=== PATIENT | female | born 1980 | race Caucasian/White ===

== ENCOUNTER 2018-04-15 01:25 | Emergency (ER) | payer BC ==
[2018-04-15] MEDS ORDERED: ACETAMINOPHEN 325 MG TABLET PO ONE (02:03)
[2018-04-15 02:07] LABS: APPEARANCE,URINE SLIGHTLY-CLOUDY; BILIRUBIN,URINE NEGATIVE (NEGATIVE); COLOR,URINE YELLOW; GLUCOSE, URINE NEGATIVE (NEGATIVE); KETONES,URINE NEGATIVE (NEGATIVE); LEUKOCYTE ESTERASE,URINE NEGATIVE (NEGATIVE); NITRITE,URINE NEGATIVE (NEGATIVE); PROTEIN,URINE 100 mg/dL (NEGATIVE); UROBILINOGEN,URINE NEGATIVE mg/dL (<2.0)
--- NOTE | 2018-04-15 02:07 | ER Document Report ---
ED General - General Chief Complaint: Vaginal Bleeding Stated Complaint: VAGINAL BLEEDING Time Seen by Provider: 04/15/18 01:48 TRAVEL OUTSIDE OF THE U.S[place] IN LAST 30 DAYS: No - HPI Notes: Patient is a 37-year-old female approximately 11 weeks who presents to the ED complaining of lower abdominal cramping and vaginal bleeding 1-1/2 hours. Patient states that she did have a miscarriage when she was 6 weeks with her first . She has not had any other abortions or miscarriages nor any other pregnancies prior. Patient states that she has been eating and drinking without difficulties. She is urinating normally and having normal bowel movements. She has not noticed any other discharge or odor vaginally. The cramping does not radiate. Patient states that she has had some nausea without any vomiting. She has a history of ovarian cysts. No other significant past medical history. Patient states that she was seen in [facility] and had an ultrasound and heart tones performed which were 180 bpm. Denies any headache, fevers, neck pain, URI, sore throat, chest pain, palpitations, syncope, cough, shortness of breath, wheeze, dyspnea, vomiting/ diarrhea, urinary retention, dysuria, hematuria, back pain, loss of control of bowel or bladder, numbness/tingling, saddle anesthesia, muscle paralysis/ weakness, or rash. - Related Data Allergies/Adverse Reactions: No Known Allergies Allergy (Unverified 04/15/18 01:58) Past Medical History - Social History Smoking Status: Former Smoker Family History: Reviewed & Not Pertinent Patient has suicidal ideation: No Patient has homicidal ideation: No Renal/ Medical History: Denies: Hx Peritoneal Dialysis Past Surgical History: Reports: Hx Gynecologic Surgery - uterine septum, Hx Tonsillectomy Review of Systems - Review of Systems -: Yes All other systems reviewed and negative Physical Exam - Vital signs Vitals: Temp Pulse Resp BP Pulse Ox 100.9 F H 108 H 18 142/94 H 98 04/15/18 01:32 04/15/18 01:32 04/15/18 01:32 04/15/18 01:32 04/15/18 01:32 - Notes Notes: PHYSICAL EXAMINATION: GENERAL: Well-appearing, well-nourished and in no acute distress. A&ox4. Answers questions appropriately. LUNGS: Breath sounds clear to auscultation bilaterally and equal. No wheezes rales or rhonchi. HEART: Regular rate and rhythm without murmurs, rubs, gallops. ABDOMEN: Soft, nondistended abdomen. No guarding, no rebound. No masses appreciated. Normal bowel sounds present. No CVA tenderness bilaterally. + mild tenderness lower pubic area b/l. No tenderness at mcburney and neg watkins. Extremities: No cyanosis, clubbing, or edema b/l. Peripheral pulses 2+. Capillary refill less than 3 seconds. NEUROLOGICAL: Normal speech, normal gait. PSYCH: Normal mood, normal affect. SKIN: Warm, Dry, normal turgor, no rashes or lesions noted. Course - Re-evaluation Re-evalutation: 04/15/18 03:41 Patient is a well-hydrated 37-year-old female who presents to the ED with vaginal bleeding in early , ovarian cyst, and her abdominal cramping/ pain. Vitals are acceptable. PE is otherwise unremarkable. Patient has no significant tachycardia, tachypnea, or hypoxia. She was given Tylenol and Zofran. Patient states that she did receive RhoGam on Tuesday she is a negative. CBC, CMP, urinalysis were otherwise unremarkable for any acute pathology. HCG appropriate for an 11 week 2 day gestation approximately by ultrasound. Ultrasound also showed a subchorionic bleed, ovarian cyst, and tachycardia at 180 bpm. Patient states that she is already scheduled for an appointment with [facility]. Advised patient that she is at risk of an / miscarriage which she is understanding of. Advised close follow-up with [facility] early next week. Return to the ED with any worsening/concerning symptoms otherwise as reviewed in discharge. Low suspicion otherwise for any other acute abdomen at this time. Patient is in agreement. - Vital Signs Vital signs: Temp Pulse Resp BP Pulse Ox 100.9 F H 108 H 18 142/94 H 98 04/15/18 01:32 04/15/18 01:32 04/15/18 01:32 04/15/18 01:32 04/15/18 01:32 - Laboratory Result Diagrams: 04/15/18 02:15 04/15/18 02:15 Laboratory results interpreted by me: 04/15/18 04/15/18 04/15/18 01:46 02:15 02:15 RDW 14.1 H Alkaline Phosphatase 37 L Beta HCG, Quant 41720.00 H Urine Protein 100 H Urine Blood LARGE H Discharge - Discharge Clinical Impression: Vaginal bleeding affecting early Ovarian cyst Qualifiers: Laterality: left Qualified Code(s): N83.202 - Unspecified ovarian cyst, left side Condition: Stable Disposition: HOME, SELF-CARE Instructions: Ovarian Cyst ([facility]), Bleeding During Early ([facility]) Additional Instructions: Maintain fluid intake Proper hygenic technique Keep the skin clean Tylenol as needed Take medications as directed F/u with your PCM/OBGYN in 2-3 days for a recheck Consider consult with a Urologist for ongoing/worsening symptoms. Return to the ED with any worsening symptoms and/or development of fever, headache, chest pain, palpitations, syncope, shortness of breath, trouble breathing, abdominal pain, n/v/d, blood in stool/urine, loss of control of bowel /bladder, urinary retention, or other worsening symptoms that are concerning to you. Prescriptions: Ondansetron [Zofran Odt 4 mg Tablet] 1 - 2 tab PO Q4H PRN #15 tab.rapdis PRN Reason: For Nausea/Vomiting Forms: Elevated Blood Pressure Referrals: STACY SWEENEY PA [Primary Care Provider] - 04/17/18 [facility] [Provider Group] - 04/17/18
[2018-04-15 02:26] LABS: ABSOLUTE BASOPHILS # (AUTO) 0.1 10^3/uL (0.0-0.2); ABSOLUTE EOSINOPHILS # (AUTO) 0.2 10^3/uL (0.0-0.6); ABSOLUTE LYMPHOCYTES (AUTO) 1.3 10^3/uL (0.5-4.7); ABSOLUTE NEUT (AUTO) 7.7 10^3/uL (1.7-8.2); BASOPHILS % (AUTO) 0.7 % (0-2); EOSINOPHILS % (AUTO) 1.8 % (0-6); HEMATOCRIT 37.9 % (36.0-47.0); HEMOGLOBIN 12.9 g/dL (12.0-15.5); LYMPHOCYTES % (AUTO) 13.1 % (13-45); MEAN CORPUSCULAR HEMOGLOBIN 28.5 pg (27.0-33.4); MEAN CORPUSCULAR HGB CONC 34.1 g/dL (32.0-36.0); MEAN CORPUSCULAR VOLUME 84 fl (80-97); MONOCYTES % (AUTO) 9.3 % (3-13); PLATELET COUNT 216 10^3/uL (150-450); RED BLOOD COUNT 4.53 10^6/uL (3.72-5.28); RED CELL DISTRIBUTION WIDTH 14.1 % (11.5-14.0); SEGMENTED NEUTROPHILS % (AUTO) 75.1 % (42-78); TOTAL CELLS COUNTED % (AUTO) 100 %; WHITE BLOOD COUNT 10.3 10^3/uL (4.0-10.5)
[2018-04-15 02:47] LABS: ALANINE AMINOTRANSFERASE 22 U/L (9-52); ALBUMIN 4.1 g/dL (3.5-5.0); ALKALINE PHOSPHATASE 37 U/L (38-126); ANION GAP 12 (5-19); ASPARTATE AMINO TRANSFERASE 15 U/L (14-36); BILIRUBIN,DIRECT 0.3 mg/dL (0.0-0.4); BILIRUBIN,TOTAL 0.3 mg/dL (0.2-1.3); BLOOD UREA NITROGEN 13 mg/dL (7-20); CALCIUM 9.9 mg/dL (8.4-10.2); CARBON DIOXIDE 22 mmol/L (22-30); CHLORIDE 105 mmol/L (98-107); GLUCOSE 106 mg/dL (75-110); POTASSIUM 4.6 mmol/L (3.6-5.0); SODIUM 139.2 mmol/L (137-145); TOTAL PROTEIN 6.9 g/dL (6.3-8.2)
[2018-04-15] MEDS ORDERED: ONDANSETRON 4 MG TAB.RAPDIS PO ONE (03:11)
--- NOTE | 2018-04-15 03:35 | RADIOLOGY REPORT (SQ) ---
EXAM DESCRIPTION: US TRANSVAGINAL COMPLETED DATE/TME: 04/15/2018 01:48 CLINICAL HISTORY: 37 years, Female, and bleeding LMP 01/28/2018 COMPARISON: None. TECHNIQUE: Complete first trimester surgical ultrasound with transvaginal imaging. FINDINGS: The uterus measures 11.5 x 9.3 x 7.2 cm. Within the endometrial canal there is a single gestational sac with pole identified. [place]-rump length of 4.48 cm compatible with an estimated gestational age of 11 weeks, 2 days. heart rate of 180 beats for minute. Gestational sac has a qualitatively normal appearance. No myometrial abnormalities. Small hypodensity adjacent to the gestational sac. The right ovary is not identified. The left ovary measures 7.6 x 6.2 x 4.1 cm by my measurements. Within the left ovary there is a 7.2 x 4.2 x 4.2 cm cyst. No free pelvic fluid. IMPRESSION: 1. Single live intrauterine with estimated gestational age of 11 weeks, 2 days. 2. Small subchorionic hemorrhage is a 1.4 cm. 3. tachycardia at 180 beats for minute. Close continued clinical and sonographic follow-up recommended. 4. There is a 7.2 cm simple left ovarian cyst. Obstetrical evaluation recommended. 2010 [employer]- All Rights Reserved
[2018-04-15] MEDS ORDERED: ONDANSETRON ODT 4 MG TAB (6 TAB/ER DISP) PO PRN (03:48)
[2018-04-15 03:59] VITALS: BP 137/83
== END 2018-04-15 04:19 | disposition home or self-care (01) ==
LOC: ER 01:25
DX: O20.8 Other hemorrhage in early pregnancy (principal); O34.80 Maternal care for other abnormalities of pelvic organs, unspecified trimester; N83.292 Other ovarian cyst, left side; O26.899 Other specified pregnancy related conditions, unspecified trimester; R11.0 Nausea; O36.8390 Maternal care for abnormalities of the fetal heart rate or rhythm, unspecified trimester, not applicable or unspecified; Z3A.00 Weeks of gestation of pregnancy not specified; Z87.891 Personal history of nicotine dependence; Z87.59 Personal history of other complications of pregnancy, childbirth and the puerperium
CPT/HCPCS: 99284; 86900; 86901; 36415; 87086; 84702; 85025; 80053; 81001; 76817; 93976; S0119

== ENCOUNTER 2018-07-06 07:55 | Emergency (ER) | payer BC ==
[2018-07-06] MEDS ORDERED: NORMAL SALINE 1000 ML 1,000 ML IV ONE ×2 (08:51→12:36)
--- NOTE | 2018-07-06 08:58 | ER Document Report ---
ED General - General Chief Complaint: Abdominal Pain Stated Complaint: ABDOMINAL PAIN Time Seen by Provider: 07/06/18 08:25 TRAVEL OUTSIDE OF THE [place] IN LAST 30 DAYS: No - HPI Notes: Patient is a 37-year-old female with a previous miscarriage and a recent emergent vaginal delivery with loss of child 3 days ago who presents to the ED complaining of generalized abdominal pain that is described as sharp which is primarily to the lower abdomen and epigastrium. Patient states that her pain started yesterday and was instructed by her BONDING AGENT to come to the ED for evaluation. Patient states that she had been eating and drinking without any difficulties, but does have decreased p.o. intake. Patient states that she has had some vaginal bleeding and blood clots noted. She is urinating normally and having normal bowel movements. Denies any drug allergies. Patient does have some past medical history significant for hypertension. No other concerns or complaints at this time. Denies any headache, fever, head injury, neck pain, URI, sore throat, chest pain, palpitations, syncope, cough, shortness of breath , wheeze, dyspnea, nausea/vomiting/diarrhea, urinary retention, dysuria, hematuria, loss of control of bowel or bladder, numbness/tingling, saddle anesthesia, muscle paralysis/weakness, or rash. - Related Data Allergies/Adverse Reactions: No Known Allergies Allergy (Verified 07/06/18 07:56) Past Medical History - Social History Smoking Status: Unknown if Ever Smoked Family History: Reviewed & Not Pertinent Renal/ Medical History: Denies: Hx Peritoneal Dialysis Past Surgical History: Reports: Hx Gynecologic Surgery - uterine septum, Hx Tonsillectomy Review of Systems - Review of Systems -: Yes All other systems reviewed and negative Physical Exam - Vital signs Vitals: Temp Pulse Resp BP Pulse Ox 98.7 F 113 H 20 125/71 100 07/06/18 08:00 07/06/18 08:00 07/06/18 08:00 07/06/18 08:00 07/06/18 08:00 - Notes Notes: PHYSICAL EXAMINATION: GENERAL: Well-appearing, well-nourished and in no acute distress. HEAD: Atraumatic, normocephalic. EYES: Pupils equal round and reactive to light, extraocular movements intact, sclera anicteric, conjunctiva are normal. ENT: Nares patent and without discharge. oropharynx clear without exudates. No tonsilar hypertrophy or erythema. Moist mucous membranes. NECK: Normal range of motion, supple without lymphadenopathy LUNGS: Breath sounds clear to auscultation bilaterally and equal. No wheezes rales or rhonchi. HEART: Regular rate and rhythm without murmurs, rubs, gallops. ABDOMEN: + mild firmness noted generalized. + tenderness generalized, but primarily to the Lt lower pelvic and epigastrum. minimal guarding, + rebound to the LLQ. No obvious masses appreciated. Normal bowel sounds present. No CVA tenderness bilaterally. : pt declined. Musculoskeletal: FROM to passive/active. Strength 5+/5. Extremities: No cyanosis, clubbing, or edema b/l. Peripheral pulses 2+. Capillary refill less than 3 seconds. NEUROLOGICAL: Normal speech, normal gait. PSYCH: Normal mood, normal affect. SKIN: Warm, Dry, normal turgor, no rashes or lesions noted. Course - Re-evaluation Re-evalutation: 07/06/18 12:[address] Thacker eval the patient. We will now be ordering a CT scan of the abd, more fluids, and toradol to further evaluate. 07/06/18 13:45 I did review with Dr. Thacker as well as her OBGYN Dr. Ramirez who do not recommend any further work up at this time. Dr. Ramirez will be following up with her early next week. Patient is an afebrile, well-hydrated, 37-year-old female who presents to the ED with abdominal pain unspecified, but most likely related to the very large lower abd mass (which she was told is her fibroid by OBGYN). Vitals are acceptable without any significant tachycardia, tachypnea, or hypoxia. PE is otherwise unremarkable. CBC, CMP, lipase, urinalysis were grossly unremarkable for any acute pathology. A urine culture is pending as I believe that the urinalysis was contaminant. Patient is nontoxic-appearing is tolerating p.o. without any difficulties. Transvaginal ultrasound was also unremarkable for any acute pathology aside from a small cyst which she has known about. No other labs or imaging warranted at this time based on H&P. Low suspicion/risk for acute appendicitis, bowel obstruction, acute cholecystitis, acute cholangitis, perforated diverticulitis, incarcerated hernia, pancreatitis, perforated ulcer, peritonitis, sepsis, pelvic inflammatory disease, endometritis , ovarian abscess, ovarian torsion, or other systemic emergent condition at this time. Patient is aware that her condition can change from initial presentation and she needs to monitor symptoms closely and seek medical attention if any acute changes. I will send her home with a prescription for Zofran and morphine. Conservative measures otherwise for symptoms. Recheck with your PCM/OBGYN in 3-5 days. Return to the ED with any worsening/ concerning symptoms otherwise as reviewed in discharge. Patient is in agreement. - Vital Signs Vital signs: Temp Pulse Resp BP Pulse Ox 98.4 F 94 21 H 130/79 H 97 07/06/18 11:00 07/06/18 13:21 07/06/18 13:21 07/06/18 13:21 07/06/18 13:21 - Laboratory Result Diagrams: 07/06/18 08:55 07/06/18 08:55 Laboratory results interpreted by me: 07/06/18 07/06/18 07/06/18 08:55 08:55 09:20 Hgb 10.6 L Hct 31.0 L RDW 15.5 H Seg Neutrophils % 83.1 H Lymphocytes % 7.9 L Absolute Neutrophils 8.7 H Total Protein 6.0 L Urine Blood LARGE H Ur Leukocyte Esterase SMALL H Discharge - Discharge Clinical Impression: Abdominal mass Qualifiers: Abdominal location: other location Qualified Code(s): R19.09 - Other intra- abdominal and pelvic swelling, mass and lump Abdominal pain Qualifiers: Abdominal location: lower abdomen, unspecified Qualified Code(s): R10.30 - Lower abdominal pain, unspecified Condition: Stable Disposition: HOME, SELF-CARE Instructions: Abdominal Pain ([facility]), Antinausea Medication ([facility]), Oral Narcotic Medication ([facility]) Additional Instructions: Maintain adequate fluid and food intake [place] diet ([employer] Bananas, rice, apples, toast, etc Zofran as needed tylenol if needed Monitor for any worsening symptoms Make sure you are staying hydrated enough to urinate and have normal BM's Recheck with your PCM in 3-5 days Keep your scheduled appointment with [facility] early next week for further evaluation and management Return to the ED with any worsening symptoms and/or development of fever, headache, chest pain, palpitations, syncope, shortness of breath, trouble breathing, abdominal pain, n/v/d, blood in stool/urine, weakness, or other worsening symptoms that are concerning to you. Prescriptions: Morphine Sulfate [Morphine Ir 15 Mg Tablet] 15 mg PO TID #15 tablet Ondansetron [Zofran Odt 4 mg Tablet] 1 - 2 tab PO Q4H PRN #15 tab.rapdis PRN Reason: For Nausea/Vomiting Forms: Elevated Blood Pressure Referrals: STACY SWEENEY PA [Primary Care Provider] - Follow up as needed YANG RAMIREZ MD [NO LOCAL MD] - 07/10/18
[2018-07-06] MEDS ORDERED: MORPHINE SULFATE 10 MG/ML INJ IV ONE (09:02)
[2018-07-06 09:09] LABS: ABSOLUTE BASOPHILS # (AUTO) 0.1 10^3/uL (0.0-0.2); ABSOLUTE EOSINOPHILS # (AUTO) 0.2 10^3/uL (0.0-0.6); ABSOLUTE LYMPHOCYTES (AUTO) 0.8 10^3/uL (0.5-4.7); ABSOLUTE MONOCYTES (AUTO) 0.7 10^3/uL (0.1-1.4); ABSOLUTE NEUT (AUTO) 8.7 10^3/uL (1.7-8.2); BASOPHILS % (AUTO) 0.5 % (0-2); EOSINOPHILS % (AUTO) 1.9 % (0-6); HEMOGLOBIN 10.6 g/dL (12.0-15.5); LYMPHOCYTES % (AUTO) 7.9 % (13-45); MEAN CORPUSCULAR HEMOGLOBIN 28.1 pg (27.0-33.4); MEAN CORPUSCULAR HGB CONC 34.2 g/dL (32.0-36.0); MEAN CORPUSCULAR VOLUME 82 fl (80-97); MONOCYTES % (AUTO) 6.6 % (3-13); PLATELET COUNT 211 10^3/uL (150-450); RED BLOOD COUNT 3.77 10^6/uL (3.72-5.28); RED CELL DISTRIBUTION WIDTH 15.5 % (11.5-14.0); SEGMENTED NEUTROPHILS % (AUTO) 83.1 % (42-78); TOTAL CELLS COUNTED % (AUTO) 100 %; WHITE BLOOD COUNT 10.4 10^3/uL (4.0-10.5)
[2018-07-06] MEDS ORDERED: MORPHINE SULFATE 10 MG/ML INJ ONE (09:14)
[2018-07-06 09:23] LABS: ALBUMIN 3.5 g/dL (3.5-5.0); ANION GAP 12 (5-19); ASPARTATE AMINO TRANSFERASE 17 U/L (14-36); BLOOD UREA NITROGEN 11 mg/dL (7-20); CALCIUM 9.3 mg/dL (8.4-10.2); CARBON DIOXIDE 24 mmol/L (22-30); CHLORIDE 104 mmol/L (98-107); GLUCOSE 102 mg/dL (75-110); POTASSIUM 4.1 mmol/L (3.6-5.0); SODIUM 139.5 mmol/L (137-145)
[2018-07-06 09:24] LABS: ALANINE AMINOTRANSFERASE 24 U/L (9-52); ALKALINE PHOSPHATASE 39 U/L (38-126); BILIRUBIN,DIRECT 0.2 mg/dL (0.0-0.4); BILIRUBIN,TOTAL 0.4 mg/dL (0.2-1.3); LIPASE 56.2 U/L (23-300)
[2018-07-06 09:59] LABS: APPEARANCE,URINE SLIGHTLY-CLOUDY; BILIRUBIN,URINE NEGATIVE (NEGATIVE); COLOR,URINE YELLOW; GLUCOSE, URINE NEGATIVE (NEGATIVE); KETONES,URINE NEGATIVE (NEGATIVE); LEUKOCYTE ESTERASE,URINE SMALL (NEGATIVE); NITRITE,URINE NEGATIVE (NEGATIVE); PROTEIN,URINE NEGATIVE (NEGATIVE); UROBILINOGEN,URINE NEGATIVE mg/dL (<2.0)
[2018-07-06] MEDS ORDERED: HYDROMORPHONE HCL INJ/PF 2 MG/ML AMPULE IV ONE ×2 (10:23→13:52)
[2018-07-06] MEDS ORDERED: LORAZEPAM INJ 2 MG/1 ML VIAL IV ONE (10:23)
[2018-07-06] MEDS ORDERED: HYDROMORPHONE HCL INJ/PF 2 MG/ML AMPULE ONE ×2 (10:37→13:59)
[2018-07-06] MEDS ORDERED: LORAZEPAM INJ 2 MG/1 ML VIAL ONE (10:38)
--- NOTE | 2018-07-06 10:46 | RADIOLOGY REPORT (SQ) ---
EXAM DESCRIPTION: U/S NON OB PEL TV W/DOPPLER COMPLETED DATE/TIME: 07/06/2018 10:37 am REASON FOR STUDY: pelvic/lower abd pain COMPARISON: None. TECHNIQUE: Dynamic and static grayscale images acquired of the pelvis via transvaginal approach and recorded on PACS. Additional selected color Doppler and spectral images recorded. LIMITATIONS: None. FINDINGS: UTERUS: Contour normal. No mass. ENDOMETRIAL STRIPE: No focal or generalized thickening. No masses. CERVIX: No nabothian cysts. RIGHT OVARY AND DOPPLER: Ovary not visualized. LEFT OVARY AND DOPPLER: 1.7 cm simple cyst. Normal arterial vascular flow. FREE FLUID: Small amount. OTHER: No other significant finding. MEASUREMENTS: UTERUS: 12.8 x 8.7 x 9.0 cm ENDOMETRIAL STRIPE: 21 mm RIGHT OVARY: Not visualized. LEFT OVARY: 3.9 x 3.5 x 3.3 cm. IMPRESSION: Small simple cyst left ovary. TECHNICAL DOCUMENTATION: JOB ID: [id number] [employer]- All Rights Reserved Rev-03/31 Reading location - IP/workstation name: [email or web address]
[2018-07-06] MEDS ORDERED: KETOROLAC TROMETHAMINE INJ/PF 30 MG/1 ML SDV IV ONE (12:36)
[2018-07-06] MEDS ORDERED: KETOROLAC TROMETHAMINE INJ/PF 30 MG/1 ML SDV ONE (12:58)
--- NOTE | 2018-07-06 13:38 | RADIOLOGY REPORT (SQ) ---
EXAM DESCRIPTION: CT ABD/PELVIS WITH IV ONLY COMPLETED DATE/TIME: 07/06/2018 1:11 pm REASON FOR STUDY: Lower abdominal pain COMPARISON: None. TECHNIQUE: CT scan of the abdomen and pelvis performed using helical scanning technique with dynamic intravenous contrast injection. No oral contrast. Images reviewed with lung, soft tissue, and bone windows. Reconstructed coronal and sagittal MPR images reviewed. Delayed images for evaluation of the urinary system also acquired. All images stored on PACS. All CT scanners at this facility use dose modulation, iterative reconstruction, and/or weight based d osing when appropriate to reduce radiation dose to as low as reasonably achievable (ALARA). [facility]: Dose Right [facility]: CareDose [facility]: Dose Right [facility]: Teradose 4D [facility]: Showkicker CONTRAST TYPE AND DOSE: 100 cc Omnipaque 350- low osmolar. RENAL FUNCTION: GFR > 60. RADIATION DOSE: . LIMITATIONS: None. FINDINGS: LOWER CHEST: Hiatal hernia. LIVER: Benign cyst. No suspicious masses. SPLEEN: Normal size. No focal lesions. PANCREAS: No masses. No significant calcifications. No adjacent inflammation or peripancreatic fluid collections. Pancreatic duct not dilated. GALLBLADDER: No identified stones by CT criteria. No inflammatory changes to suggest cholecystitis. ADRENAL GLANDS: No significant masses or asymmetry. RIGHT KIDNEY AND URETER: No solid masses. No significant calcifications. No hydronephrosis or hyd roureter. LEFT KIDNEY AND URETER: No solid masses. No significant calcifications. No hydronephrosis or hydr oureter. AORTA AND VESSELS: No aneurysm. No dissection. Renal arteries, SMA, celiac without stenosis. RETROPERITONEUM: No retroperitoneal adenopathy, hemorrhage or masses. BOWEL AND PERITONEAL CAVITY: Trace ascites surrounding the liver. No free air. In the anterior lowe r abdomen, there is a 9.8 x 14.1 cm AP by transverse diameter by 11 cm craniocaudal diameter mass everett suring about 35 Hounsfield units. Mass abuts the superior margin of the uterus. No central calcific ations. APPENDIX: Normal. PELVIS: Enlarged uterus displacing the urinary bladder anteriorly. No adenopathy. ABDOMINAL WALL: No masses. No hernias. BONES: No significant or acute findings. OTHER: No other significant finding. IMPRESSION: Large lower abdominal mass with indistinct tissue planes with the adjacent uterus. Diff erential includes a large pedunculated fibroid, endometrioma, among others. No hydronephrosis or bow el obstruction. Mass is amenable to CT-guided biopsy. TECHNICAL DOCUMENTATION: JOB ID: [id number] Quality ID # [id number]: Final reports with documentation of one or more dose reduction techniques (e.g., Au tomated exposure control, adjustment of the mA and/or kV according to patient size, use of iterative reconstruction technique) 2010 [employer]- All Rights Reserved Reading location - IP/workstation name: [email or web address]
[2018-07-06 14:05] VITALS: BP 116/70
== END 2018-07-06 14:15 | disposition home or self-care (01) ==
LOC: ER 07:55
DX: R19.00 Intra-abdominal and pelvic swelling, mass and lump, unspecified site (principal); N83.292 Other ovarian cyst, left side; R10.30 Lower abdominal pain, unspecified; R10.13 Epigastric pain; N93.9 Abnormal uterine and vaginal bleeding, unspecified; I10 Essential (primary) hypertension
CPT/HCPCS: 96376; 99284; 96361; 96374; 96375; 36415; 87086; 83690; 85025; 87088; 80053; 81001; 87186; 76830; 93976; 74177; J1885; J2270; J1170; J2060; J7030

== ENCOUNTER 2019-07-23 03:35 | Emergency (ER) | payer BC ==
[2019-07-23] MEDS ORDERED: FUROSEMIDE INJ/PF 40 MG/4 ML SDV IV ONE (04:03)
[2019-07-23 04:31] LABS: VENOUS BLOOD BASE EXCESS -2.1 mmol/L; VENOUS BLOOD HCO3 22.5 mmol/L (20-32); VENOUS BLOOD PCO2 37.7 mmHg (35-63); VENOUS BLOOD PH 7.39 (7.30-7.42)
[2019-07-23 04:32] LABS: ABSOLUTE EOSINOPHILS # (AUTO) 0.2 10^3/uL (0.0-0.6); ABSOLUTE LYMPHOCYTES (AUTO) 0.4 10^3/uL (0.5-4.7); ABSOLUTE MONOCYTES (AUTO) 0.5 10^3/uL (0.1-1.4); ABSOLUTE NEUT (AUTO) 5.4 10^3/uL (1.7-8.2); BASOPHILS % (AUTO) 0.3 % (0-2); EOSINOPHILS % (AUTO) 2.7 % (0-6); HEMATOCRIT 28.5 % (36.0-47.0); HEMOGLOBIN 9.8 g/dL (12.0-15.5); LYMPHOCYTES % (AUTO) 6.9 % (13-45); MEAN CORPUSCULAR HGB CONC 34.3 g/dL (32.0-36.0); MEAN CORPUSCULAR VOLUME 82 fl (80-97); MONOCYTES % (AUTO) 7.9 % (3-13); PLATELET COUNT 168 10^3/uL (150-450); RED BLOOD COUNT 3.49 10^6/uL (3.72-5.28); SEGMENTED NEUTROPHILS % (AUTO) 82.2 % (42-78); TOTAL CELLS COUNTED % (AUTO) 100 %; WHITE BLOOD COUNT 6.5 10^3/uL (4.0-10.5)
[2019-07-23 04:41] LABS: INTERNATIONAL RATION (INR) 0.95; PROTHROMBIN TIME 12.7 SEC (11.4-15.4)
[2019-07-23 04:51] LABS: ALBUMIN 2.8 g/dL (3.5-5.0); ALKALINE PHOSPHATASE 76 U/L (38-126); ANION GAP 7 (5-19); ASPARTATE AMINO TRANSFERASE 22 U/L (14-36); BILIRUBIN,DIRECT 0.1 mg/dL (0.0-0.4); BILIRUBIN,TOTAL 0.6 mg/dL (0.2-1.3); BLOOD UREA NITROGEN 9 mg/dL (7-20); CALCIUM 8.5 mg/dL (8.4-10.2); CARBON DIOXIDE 24 mmol/L (22-30); CHLORIDE 107 mmol/L (98-107); GLUCOSE 107 mg/dL (75-110)
--- NOTE | 2019-07-23 04:58 | RADIOLOGY REPORT (SQ) ---
EXAM DESCRIPTION: XR CHEST 1 VIEW COMPLETED DATE/TME: 07/23/2019 04:00 CLINICAL HISTORY: 38 years, Female, sob COMPARISON: None. NUMBER OF VIEWS: 1 TECHNIQUE: Portable chest LIMITATIONS: None. FINDINGS: The heart size is normal. Nodular opacities are present bilaterally, the largest in the left perihilar region measuring 2.3 cm. Underlying coarsened interstitial changes are also present. No pneumothorax IMPRESSION: Nonspecific nodular opacities bilaterally. Metastatic disease is not excluded. Underlying coarsened interstitial changes may reflect interstitial edema and/or pneumonitis copyright 2010 [employer] All Rights Reserved
[2019-07-23 05:02] LABS: NT PRO BNP 565 pg/mL (<125)
[2019-07-23 05:04] LABS: TROPONIN I < 0.012 ng/mL
[2019-07-23 05:18] LABS: APPEARANCE,URINE SLIGHTLY-CLOUDY; BILIRUBIN,URINE NEGATIVE (NEGATIVE); COLOR,URINE YELLOW; GLUCOSE, URINE NEGATIVE (NEGATIVE); KETONES,URINE NEGATIVE (NEGATIVE); LEUKOCYTE ESTERASE,URINE LARGE (NEGATIVE); NITRITE,URINE NEGATIVE (NEGATIVE); PROTEIN,URINE 100 mg/dL (NEGATIVE); URINE SPECIFIC GRAVITY 1.011; UROBILINOGEN,URINE NEGATIVE mg/dL (<2.0)
--- NOTE | 2019-07-23 06:07 | ER Document Report ---
Entered by JERRY CURRY SCRIBE 07/23/19 0356 Acting as scribe for:PATRICIA ORTIZ DO ED Respiratory Problem - General Chief Complaint: Shortness Of Breath Stated Complaint: DIFFICULTY BREATHING Time Seen by Provider: 07/23/19 03:50 Primary Care Provider: STACY SWEENEY PA-C [Primary Care Provider] - Follow up as needed Mode of Arrival: Ambulatory Information source: Patient Notes: Patient is a 38-year-old female who presents to the emergency department today with complaints of shortness of breath. Patient gave to twins via C- section at 32 weeks x4 days ago at [facility]. Patient states she has an incompetent cervix, she began having contractions and began dilating so a c section was performed. Patient had gestational diabetes and was preeclamptic. Patient states that she was trying to sleep tonight when her shortness of breath began. Patient states she took her temperature and it was 100.2, she took T ylenol and ibuprofen for this prior to arrival. Patient denies any sick contacts. TRAVEL OUTSIDE OF THE [place] IN LAST 30 DAYS: No - Related Data Allergies/Adverse Reactions: No Known Allergies Allergy (Verified 07/23/19 03:57) Past Medical History - General Information source: Patient - Social History Smoking Status: Unknown if Ever Smoked Cigarette use (# per day): No Frequency of alcohol use: None Drug Abuse: None Family History: Reviewed & Not Pertinent - Past Medical History Cardiac Medical History: Reports: Hx Hypertension Past Surgical History: Reports: Hx Abdominal Surgery - tuck, Hx Section, Hx Gynecologic Surgery - uterine septum, Hx Tonsillectomy Review of Systems - Review of Systems Constitutional: See HPI, Fever EENT: No symptoms reported Cardiovascular: No symptoms reported Respiratory: See HPI, Short of breath Gastrointestinal: No symptoms reported Genitourinary: No symptoms reported Female Genitourinary: No symptoms reported Musculoskeletal: No symptoms reported Skin: No symptoms reported Hematologic/Lymphatic: No symptoms reported Neurological/Psychological: No symptoms reported -: Yes All other systems reviewed and negative Physical Exam - Vital signs Vitals: Temp Pulse Resp BP Pulse Ox 99.1 F 92 16 142/82 H 97 07/23/19 03:35 07/23/19 03:35 07/23/19 03:35 07/23/19 03:35 07/23/19 03:35 Interpretation: Normal - General General appearance: Appears well, Alert - HEENT Head: Normocephalic, Atraumatic Eyes: Normal Pupils: PERRL - Respiratory Respiratory status: No respiratory distress, Tachypnea Chest status: Nontender Breath sounds: Decreased air movement - At bases Chest palpation: Normal - Cardiovascular Rhythm: Regular Heart sounds: Normal auscultation Murmur: No - Abdominal Inspection: Normal Distension: No distension Bowel sounds: Normal Tenderness: Nontender Organomegaly: No organomegaly - Back Back: Normal, Nontender - Extremities General upper extremity: Normal inspection, Nontender, Normal color, Normal ROM, Normal temperature General lower extremity: Normal inspection, Nontender, Normal color, Normal ROM, Normal temperature, Normal weight bearing. No: Laura's sign - Neurological Neuro grossly intact: Yes Cognition: Normal Orientation: AAOx4 Alexa Coma Scale Eye Opening: Spontaneous [place] Coma Scale Verbal: Oriented [place] Coma Scale Motor: Obeys Commands [place] Coma Scale Total: 15 Speech: Normal Motor strength normal: LUE, RUE, LLE, RLE Sensory: Normal - Psychological Associated symptoms: Normal affect, Normal mood - Skin Skin Temperature: Warm Skin Moisture: Dry Skin Color: Normal Course - Re-evaluation Re-evalutation: 07/23/19 05:37 Patient is a 38-year-old female who comes in with increasing dyspnea on exertion and orthopnea. Patient recently gave to twins within the last 2 days at 32 weeks due to preeclampsia. Patient also had gestational diabetes at the time. No history of heart failure or cardiomyopathy. Patient had a temperature of 100.2 but is afebrile here. She has had a cough and congestion. Denies any sick contacts. No history of pulmonary embolus. Patient has leg swelling but has had it for the . Initial blood work with no acute abnormalities. Chest x-ray indeterminate. CTA chest will be obtained to evaluate for PE versus pneumonia versus fluid overload. Patient will likely require admission or transfer. 07/23/19 06:[address] Buchanan pending CTA result. - Vital Signs Vital signs: Temp Pulse Resp BP Pulse Ox 99.1 F 92 18 139/80 H 98 07/23/19 03:35 07/23/19 03:35 07/23/19 04:31 07/23/19 04:31 09/09/19 04:31 - Laboratory Result Diagrams: 07/23/19 04:14 07/23/19 04:14 Laboratory results interpreted by me: 07/23/19 07/23/19 07/23/19 04:14 04:14 04:14 RBC 3.49 L Hgb 9.8 L Hct 28.5 L RDW 17.0 H Lymph % (Auto) 6.9 L Absolute Lymphs (auto) 0.4 L Seg Neutrophils % 82.2 H POC Glucose NT-Pro-B Natriuret Pep 565 H Total Protein 5.0 L Albumin 2.8 L Urine Protein Urine Blood Ur Leukocyte Esterase 07/23/19 07/23/19 04:32 04:55 RBC Hgb Hct RDW Lymph % (Auto) Absolute Lymphs (auto) Seg Neutrophils % POC Glucose 116 H NT-Pro-B Natriuret Pep Total Protein Albumin Urine Protein 100 H Urine Blood LARGE H Ur Leukocyte Esterase LARGE H - Diagnostic Test Radiology reviewed: Image reviewed, Reports reviewed Discharge - Discharge Clinical Impression: Dyspnea Qualifiers: Dyspnea type: unspecified Qualified Code(s): R06.00 - Dyspnea, unspecified Condition: Stable Disposition: OTHER Referrals: STACY SWEENEY PA-C [Primary Care Provider] - Follow up as needed I personally performed the services described in the documentation, reviewed and edited the documentation which was dictated to the scribe in my presence, and it accurately records my words and actions.
--- NOTE | 2019-07-23 06:38 | RADIOLOGY REPORT (SQ) ---
CLINICAL HISTORY: dyspnea, recent delivery COMPARISON: None. TECHNIQUE: CT CHEST ANGIOGRAPHY WITHOUT THEN WITH IV CONTRAST on 07/23/2019 5:14 AM CDT. MIPS reconstructions were generated. This exam was performed according to our departmental dose-optimization program, which includes automated exposure control, adjustment of the mA and/or kV according to patient size and/or use of iterative reconstruction technique. MIP images were generated. FINDINGS: Thoracic aorta is normal in course and caliber without aneurysm or dissection. Pulmonary arteries are adequately opacified without acute or chronic filling defects. The heart is normal in size. There is no pericardial effusion. Intrathoracic lymph nodes are not enlarged. There is no pleural effusion, pleural thickening or pneumothorax. Central airways are patent. There is mild pulmonary edema. There are extensive patchy areas of airspace disease throughout both lungs. There are no acute abnormalities within the limited images of the upper abdomen. There are no acute osseous findings. No suspicious bony lesions. IMPRESSION: No aortic dissection or aneurysm. No pulmonary embolus. Extensive bilateral airspace disease which may relate to pneumonia. Pulmonary edema.
[2019-07-23] MEDS ORDERED: AZITHROMYCIN INJ 500 MG VIAL IV ONE (08:28)
[2019-07-23] MEDS ORDERED: MORPHINE SULFATE 10 MG/ML INJ IV ONE (10:21)
[2019-07-23] MEDS ORDERED: ACETAMINOPHEN 325 MG TABLET ONE (10:35)
[2019-07-23] MEDS ORDERED: LABETALOL HCL INJ 20 MG/4 ML DISP.SYRIN IV ONE ×2 (10:48→15:42)
[2019-07-23] MEDS ORDERED: IBUPROFEN 600 MG TABLET PO ONE (10:48)
[2019-07-23] MEDS ORDERED: MAGNESIUM SULFATE 4 GM/100 ML RTUPB IV ONE (10:55)
[2019-07-23] MEDS ORDERED: CEFTRIAXONE 1 GM/D5W RTU 1 GM/50 ML RTUPB IV ONE (17:13)
[2019-07-23] MEDS ORDERED: LORAZEPAM INJ 2 MG/1 ML VIAL IV ONE (17:13)
--- NOTE | 2019-07-23 17:17 | ER Document Report ---
Doctor's Note Notes: 07/23/19 17:15 I reexamined patient just now. She is sitting up in the bed in no distress. She is slightly tachycardic. She is hypertensive with a systolic of 170. She is also febrile. Patient is saturating 100% on room air. I reviewed labs and x-rays. CT scan does show airspace disease and patient did receive Zithromax. Patient also has a urinary tract infection. I will give the patient Rocephin which should cover both the pulmonary and urinary infections. 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 Patient also asked for some Ativan for his anxiety. If this does not lower her blood pressure under 160 systolic I will add some hydralazine.
[2019-07-23] MEDS ORDERED: ACETAMINOPHEN 325 MG TABLET PO ONE (19:00)
[2019-07-23] MEDS: MAGNESIUM SULFATE/D5W 1 GM/100 ML RTUPB IV SCH ×2 (19:28→21:19)
[2019-07-23] MEDS ORDERED: IBUPROFEN 800 MG TABLET PO ONE (22:55)
[2019-07-23 23:14] VITALS: BP 164/100
--- NOTE | 2019-07-24 08:15 | EKG REPORT ---
SEVERITY:- NORMAL ECG - SINUS RHYTHM : Confirmed by: Jessica Petty MD 24-Jul-2019 08:13:52
== END 2019-07-23 23:23 | disposition other institution (70) ==
LOC: ER 03:35
DX: O90.89 Other complications of the puerperium, not elsewhere classified (principal); R06.00 Dyspnea, unspecified; R06.02 Shortness of breath; R50.9 Fever, unspecified; I10 Essential (primary) hypertension
CPT/HCPCS: 93005; 36415; 87040; 87086; 82962; 85025; 85610; 87077; 80053; 81001; 84484; 82803; 83605; 83880; 71045; 71275; 93010; J3475 ×2; J1940; J3490; J2270; J2060; J0456; J0696